=== PATIENT | male | born 1970 | race Caucasian/White ===

== ENCOUNTER 2024-11-13 18:00 | Emergency (ER) | payer BC, SELFPAY ==
--- OUTSIDE RECORDS SUMMARY | 2021-01-28 20:00 | XMS_ITS | Continuity of Care Document ---
Author Organization [facility] Address [address] [place] [id number] Phone Care Team Providers Care Fisheries Enforcement Officer Name Role Phone João DO, [place] Unavailable Unavailable Procedures Procedure Date Initial hospital care, [facility] Advance Directives Directive Yes / No Effective Date File Name No Information Encounters Encounter Description Practice Location Reason(s) For Visit Diagnoses Date Provider Providers Copied on Encounter Initial hospital care, [facility], [address] [place] [address], [id number], tel:[phone] [facility] No Information João Somerset. [address] [place] [address], [id number], [place]. tel:[phone] Referring Provider: Nico Love [address] [place] [address], [id number] . tel:[phone] Family History Family Member Type Diagnosis Age At Onset No Information Payers Payer name Insurance type Covered republican ID Romie gomez(constanza Hinoj[employer] Med Claims CI [id number] Social History Type Description Quantity Date Captured Comments Sex Male Smoking Status No Information Chief Complaint And Reason For Visit No Information Reason For Referral Reason For Referral No Information History Of Present Illness Encounter Date Complaint History Of Prese nt Illness No Information Functional Status Date Functional Assessmen t No Information Instructions Date Instruction Additional Infor mation No Information Assessments Type Assessment Date No Information Patient Care Teams Name Effective Dates (start - stop) Status Members No Information
[2024-11-13 18:38] VITALS: BP 165/76; PULSE 89; RESP 18; TEMP 37.4; O2SAT 96; BMI 38.7
--- NOTE | 2024-11-13 18:41 | XR_ITS ---
PROCEDURE INFORMATION: Exam: XR Chest Exam date and time: 11/13/2024 7:06 PM Age: 54 years old Clinical indication: Pain; Other: Cp TECHNIQUE: Imaging protocol: Radiologic exam of the chest. Views: 1 view. COMPARISON: No relevant prior studies available. FINDINGS: Lungs: Unremarkable. No consolidation. Pleural spaces: Unremarkable. No pleural effusion. No pneumothorax. Heart/Mediastinum: Unremarkable. No cardiomegaly. Bones/joints: Unremarkable. IMPRESSION: No acute findings.
--- NOTE | 2024-11-13 18:45 | ED_ITS ---
<Statement entered by Tracee Young MD - 11/13/24 22:46> I was consulted by the JANUSZ, and we discussed the complexity of the problems being addressed. I approved the treatment and management plan for this patient's care in the emergency department, thus performing a substantive portion of the medical decision making. Tracee Young MD, ETHAN, FACEP Discharge Plan Disposition Patient Disposition: Home, Self-Care Prescriptions Prescriptions: New cephalexin 500 mg capsule 500 mg PO BID 10 Days Qty: 20 0RF sulfamethoxazole-trimethoprim [Bactrim DS] 800-160 mg tablet 1 tab PO BID 10 Days Qty: 20 0RF ketorolac 10 mg tablet 10 mg PO Q8H PRN (Reason: pain) 5 Days Qty: 20 0RF sulfamethoxazole-trimethoprim [Bactrim DS] 800-160 mg tablet 1 tab PO BID 10 Days Qty: 20 0RF cephalexin 500 mg capsule 500 mg PO BID 7 Days Qty: 14 0RF No Action metformin 500 mg tablet 1,000 mg PO BID Patient Comments: TAKE 2 TABLETS BY MOUTH TWICE DAILY carvedilol 25 mg tablet 25 mg PO BID Patient Comments: TAKE 1 TABLET BY MOUTH TWICE DAILY sildenafil 50 mg tablet 50 mg PO DAILY PRN (Reason: Sexual Activity) Patient Comments: TAKE 1 TABLET BY MOUTH ONCE DAILY glipizide 10 mg tablet extended release 24hr 10 mg PO BID Patient Comments: TAKE 1 TABLET BY MOUTH TWICE DAILY meloxicam 7.5 mg tablet 7.5 mg PO DAILY Patient Comments: TAKE 1 TABLET BY MOUTH ONCE DAILY losartan-hydrochlorothiazide 100-25 mg tablet 1 tab PO DAILY Patient Comments: TAKE 1 TABLET BY MOUTH ONCE DAILY IN THE MORNING tamsulosin 0.4 mg capsule 0.4 mg PO DAILY Patient Comments: TAKE 1 CAPSULE BY MOUTH ONCE DAILY amlodipine 10 mg tablet 10 mg PO DAILY Patient Comments: TAKE 1 TABLET BY MOUTH ONCE DAILY aspirin 81 mg Tablet 81 mg PO DAILY Referrals Follow up/Referrals: Logan Loomis APRN [Primary Care Provider, Medical] - See instructions Activity Restrictions/Add. Instructions Additional Instructions/Restrictions: Please follow-up with line camera operator as scheduled. Take medicine as directed. Clinical Impressions Clinical Impression: Cellulitis, Chest pain Instructions Patient Instructions: Cellulitis, DI for Chest Pain Print Language Print Language: Cymro Discharge ED Provider: Tracee Young General Adult HPI <Stephanie Saldana (ED), INSURANCE CASE MANAGER - Last Filed: 11/13/24 22:31> General Chief complaint: Skin/Abscess/Foreign Body Stated complaint: sore on back painful Time Seen by Provider: 11/13/24 18:32 Mode of Arrival: Ambulatory Source of Information: Patient and Significant Other Description of Symptoms (Recalled from ER Triage Doc. by RN): Patient presents to ED for sores on his back for about a month. States he has more swelling and pain around them now. Also c/o chest pain. History of Present Illness HPI narrative: 54-year-old male presents to the ED today for complaint of abscess in the center of his back that is indurated around the area, appears to be an abscess and is painful. It has been there more than a month. He states that it hurts all the time. Patient also has an area to the right of that that is also indurated and swollen that he is concerned about. Denies fevers or chills. He does have nausea but also complaint of chest pain that started at noon today. He saw his line camera operator on Wednesday for ABIs and is going back next Wednesday for results. He says he smokes so he always has shortness of breath. He says he had nausea that started today as well. No other symptoms. Related Data Home Medications ?Medication ?Instructions ?Recorded ?Confirmed amlodipine 10 mg tablet 10 mg PO DAILY 11/13/2408/04 aspirin 81 mg tablet 81 mg PO DAILY 11/13/2408/04 carvedilol 25 mg tablet 25 mg PO BID 11/13/24 glipizide 10 mg tablet, extended 10 mg PO BID 11/13/24 11/13/24 release 24 hr losartan 100 1 tab PO DAILY 11/13/2408/04 mg-hydrochlorothiazide 25 mg tablet meloxicam 7.5 mg tablet 7.5 mg PO DAILY 11/13/2408/04 metformin 500 mg tablet 1,000 mg PO BID 11/13/2408/04 sildenafil 50 mg tablet 50 mg PO DAILY PRN Sexual Ac tivity 11/13/24 11/13/24 tamsulosin 0.4 mg capsule 0.4 mg PO DAILY 11/13/2408/04 Previous Rx's ?Medication ?Instructions ?Recorded cephalexin 500 mg capsule 500 mg PO BID 10 days #20 ca ps 11/13/24 cephalexin 500 mg capsule 500 mg PO BID 7 days #14 cap s 11/13/24 ketorolac 10 mg tablet 10 mg PO Q8H PRN pain 5 days #20 11/13/24 tabs sulfamethoxazole 800 1 tab PO BID 10 days #20 tab s 11/13/24 mg-trimethoprim 160 mg tablet (Bactrim DS) sulfamethoxazole 800 1 tab PO BID 10 days #20 tab s 11/13/24 mg-trimethoprim 160 mg tablet (Bactrim DS) Allergies Allergy/AdvReac Type Severity Reaction Status Date / Time No Known Allergies Allergy Verified 11/13/24 18:55 PFSH <Stephanie Saldana (ED), INSURANCE CASE MANAGER - Last Filed: 11/13/24 22:31> PFS Disclaimer: The information contained in this section may have been updated after the patient was seen, as this information can be updated by other users. Social History Smoking Status: Current every day smoker alcohol intake: former current occupational status: other Travel in the last 8 weeks?: None <Stephanie Saldana (ED), INSURANCE CASE MANAGER - Last Filed: 11/13/24 22:31> ROS Obtained: Yes Systems reviewed as appropriate & no additional complaints except as documented Constitutional Constitutional: Reports as per HPI Physical Exam <Stephanie Saldana (ED), INSURANCE CASE MANAGER - Last Filed: 11/13/24 22:31> General General appearance: alert Head Head exam: normocephalic Eye Eye exam: Present PERRL ENT ENT exam: Present mucous membranes moist Neck Neck exam: Present trachea midline Chest Chest inspection: Present normal inspection and symmetric chest wall rise Respiratory Respiratory exam: Present normal lung sounds bilaterally Cardiovascular Cardiovascular exam: Present regular rate, normal rhythm, normal heart sounds, +S1 and +S2 Abdominal Exam Abdominal exam: Present soft and normal bowel sounds Extremities Exam Extremities exam: Present full ROM and normal capillary refill Back Exam Back exam: Present full ROM Neurological Exam Neurological exam: Present alert and oriented X3 Psychiatric Psychiatric exam: Present normal mood Skin Skin exam: Present warm and erythema (Area in center of his back that appears to be an abscess with an area of induration around it approximately an inch in diameter. Also to the right of that an area of swelling that is mildly erythematous and indurated. No draining) Medical Decision Making <Stephanie Saldana (ED), INSURANCE CASE MANAGER - Last Filed: 11/13/24 22:31> Medical Records Screening: Per USPSTF and CDC recommendations, given the prevalence of disease in our region, it is our hospital?s policy to screen for HIV and viral Hepatitis for all patients aged 18 and over and those with ongoing risk factors. Cecil Inquiry Pt receiving controlled substance: No Vital Signs: 11/13/24 18:38 11/13/24 18:38 11/13/24 20:16 Temperature 99.4 F 99.4 F Temperature Source Oral Oral Pulse Rate 89 82 Pulse Rate [Left] 89 Respiratory Rate 18 18 16 Blood Pressure 165/76 H 129/62 Blood Pressure [Left Arm] 165/76 H Blood Pressure Mean [Left Arm] 105 02 Sat by Pulse Oximetry 96 96 95 Oxygen Delivery Method Room Air Room Air Room Air 11/13/24 21:09 Temperature Temperature Source Pulse Rate 82 Pulse Rate [Left] Respiratory Rate 16 Blood Pressure 131/76 Blood Pressure [Left Arm] Blood Pressure Mean [Left Arm] 02 Sat by Pulse Oximetry 96 Oxygen Delivery Method Lab Data Lab Results 11/13/24 19:20: WBC 16.5 H, RBC 4.54 L, Hgb 14.4, Hct 40.2 L, MCV 88.5, MCH 31.7 H, MCHC 35.8 H, RDW 12.9, Plt Count 261, MPV 10.4, Neut % (Auto) 67.7, Lymph % (Auto) 24.9, [place] % (Auto) 5.5, Eos % (Auto) 1.3, Baso % (Auto) 0.4, Neut # (Auto) 11.2 H, Lymph # (Auto) 4.1, [place] # (Auto) 0.9, Eos # (Auto) 0.2, Baso # (Auto) 0.1, Sodium 137, Potassium 3.5, Chloride 103, Carbon Dioxide 28, Anion Gap 9.5, BUN 12, Creatinine 0.60 L, Estimated Creat Clear 241, Estimated GFR 140, Est GFR ( Amer) 169, Glucose 179 H, Calcium 10.2, Magnesium 1.3 L, Total Bilirubin 0.6, AST 27, ALT 31, Alkaline Phosphatase 77, Troponin I < 0.01, Total Protein 7.6, Albumin 4.5, Globulin 3.1, Albumin/Globulin Ratio 1.5, Lipase 50 11/13/24 21:35: Troponin I < 0.01 11/13/24 19:20 11/13/24 19:20 Orders (Tests/Meds): ED MEDICATIONS Discontinued Medications Generic Name Dose Route Start Last Admin Trade Name Serg PRN Reason Stop Dose Admin Aspirin 325 mg 11/13/24 18:43 11/13/24 19:27 Aspirin 325mg Tablet PO 11/13/24 18:44 Not Given ONCE ONE Aspirin 243 mg 11/13/24 19:31 11/13/24 19:38 Aspirin 81mg Chewable Tablet PO 11/13/24 19:32 243 mg ONCE ONE Administration Cephalexin HCl 500 mg 11/13/24 20:59 11/13/24 21:06 Cephalexin 500mg Capsule PO 11/13/24 21:00 500 mg ONCE ONE Administration Magnesium Sulfate 2 gm in 50 mls @ 50 mls/hr 11/13/24 19:47 11/13/24 20:14 Magnesium Sulfate 2gm/50ml Premix IV 11/13/24 20:46 50 mls/hr ONCE ONE Administration Ketorolac Tromethamine 30 mg 11/13/24 21:00 11/13/24 21:06 Ketorolac 30mg/Ml Vial IV 11/13/24 21:01 30 mg ONCE ONE Administration Trimethoprim/Sulfamethoxazole 1 each 11/13/24 20:59 11/13/24 21:06 Sulfa/Trimethoprim 1 Tablet PO 11/13/24 21:00 1 each ONCE ONE Administration ORDERS Category Date Time Status Chest XR -- portable [XR chest portable] Stat Exams 11/13/24 18:41 Completed POCUS Point of Care (ER Only) Stat Exams 11/13/24 18:44 Completed CBC [Complete Blood Count Auto Diff] Stat Lab 11/13/24 19:20 Completed Comprehensive Metabolic Panel Stat Lab 11/13/24 19:20 Completed Lipase Stat Lab 11/13/24 19:20 Completed Magnesium Stat Lab 11/13/24 19:20 Completed Trop I [Troponin I] Stat Lab 11/13/24 19:20 Completed Troponin I Q3H Lab 11/13/24 21:35 Completed Troponin I Q3H Lab 11/14/24 00:45 Ordered HEART Score History (anamnesis): Slightly suspicious ECG: Normal Age: 45-65 years Risk factors: 3 or more risk factors Troponin: </= normal limit HEART Score: 3 Medical Decision Narrative: patient is a 54-year-old male presenting to the emergency department for evaluation of chest pain and abscess x 2. Patient is hemodynamically stable and nontoxic-appearing upon arrival, afebrile. Differential diagnosis includes ACS, abscess, hypertension, among others. Workup will be conducted with hematologic labs, specific imaging. Initial inventions include crystalloid bolus, analgesics. Initial workup reviewed by pa hematologic labs are remarkable for elevated white count at 16.5. Mag was low and was replaced here. Patient has cellulitic areas on his back x 2. Dr. Young ultrasound of these areas and there is very small area of fluid. Will treat with antibiotics Keflex and Bactrim which the first dose has been given here. X-ray showed nothing acute. The ultrasound read by Dr. Young showed small amount of fluid in the areas of concern on his back. Will treat for cellulitis. Please see formal radiology read for report. Upon repeat evaluation patient's pain is improved. Will send patient home with Keflex and Bactrim. 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 Patient will be stable for discharge home once his second troponin has resulted. As long as it is negative. <Tracee Young MD - Last Filed: 11/13/24 21:00> Vital Signs: 11/13/24 18:38 11/13/24 18:38 11/13/24 20:16 Temperature 99.4 F 99.4 F Temperature Source Oral Oral Pulse Rate 89 82 Pulse Rate [Left] 89 Respiratory Rate 18 18 16 Blood Pressure 165/76 H 129/62 Blood Pressure [Left Arm] 165/76 H Blood Pressure Mean [Left Arm] 105 02 Sat by Pulse Oximetry 96 96 95 Oxygen Delivery Method Room Air Room Air Room Air 11/13/24 21:09 Temperature Temperature Source Pulse Rate 82 Pulse Rate [Left] Respiratory Rate 16 Blood Pressure 131/76 Blood Pressure [Left Arm] Blood Pressure Mean [Left Arm] 02 Sat by Pulse Oximetry 96 Oxygen Delivery Method Lab Data Lab Results 11/13/24 19:20: WBC 16.5 H, RBC 4.54 L, Hgb 14.4, Hct 40.2 L, MCV 88.5, MCH 31.7 H, MCHC 35.8 H, RDW 12.9, Plt Count 261, MPV 10.4, Neut % (Auto) 67.7, Lymph % (Auto) 24.9, [place] % (Auto) 5.5, Eos % (Auto) 1.3, Baso % (Auto) 0.4, Neut # (Auto) 11.2 H, Lymph # (Auto) 4.1, [place] # (Auto) 0.9, Eos # (Auto) 0.2, Baso # (Auto) 0.1, Sodium 137, Potassium 3.5, Chloride 103, Carbon Dioxide 28, Anion Gap 9.5, BUN 12, Creatinine 0.60 L, Estimated Creat Clear 241, Estimated GFR 140, Est GFR ( Amer) 169, Glucose 179 H, Calcium 10.2, Magnesium 1.3 L, Total Bilirubin 0.6, AST 27, ALT 31, Alkaline Phosphatase 77, Troponin I < 0.01, Total Protein 7.6, Albumin 4.5, Globulin 3.1, Albumin/Globulin Ratio 1.5, Lipase 50 11/13/24 21:35: Troponin I < 0.01 Orders (Tests/Meds): ED MEDICATIONS Discontinued Medications Generic Name Dose Route Start Last Admin Trade Name Freq PRN Reason Stop Dose Admin Aspirin 325 mg 11/13/24 18:43 11/13/24 19:27 Aspirin 325mg Tablet PO 11/13/24 18:44 Not Given ONCE ONE Aspirin 243 mg 11/13/24 19:31 11/13/24 19:38 Aspirin 81mg Chewable Tablet PO 11/13/24 19:32 243 mg ONCE ONE Administration Cephalexin HCl 500 mg 11/13/24 20:59 11/13/24 21:06 Cephalexin 500mg Capsule PO 11/13/24 21:00 500 mg ONCE ONE Administration Magnesium Sulfate 2 gm in 50 mls @ 50 mls/hr 11/13/24 19:47 11/13/24 20:14 Magnesium Sulfate 2gm/50ml Premix IV 11/13/24 20:46 50 mls/hr ONCE ONE Administration Ketorolac Tromethamine 30 mg 11/13/24 21:00 11/13/24 21:06 Ketorolac 30mg/Ml Vial IV 11/13/24 21:01 30 mg ONCE ONE Administration Trimethoprim/Sulfamethoxazole 1 each 11/13/24 20:59 11/13/24 21:06 Sulfa/Trimethoprim 1 Tablet PO 11/13/24 21:00 1 each ONCE ONE Administration ORDERS Category Date Time Status Chest XR -- portable [XR chest portable] Stat Exams 11/13/24 18:41 Completed POCUS Point of Care (ER Only) Stat Exams 11/13/24 18:44 Completed CBC [Complete Blood Count Auto Diff] Stat Lab 11/13/24 19:20 Completed Comprehensive Metabolic Panel Stat Lab 11/13/24 19:20 Completed Lipase Stat Lab 11/13/24 19:20 Completed Magnesium Stat Lab 11/13/24 19:20 Completed Trop I [Troponin I] Stat Lab 11/13/24 19:20 Completed Troponin I Q3H Lab 11/13/24 21:35 Completed Troponin I Q3H Lab 11/14/24 00:45 Ordered HEART Score HEART Score: 3 Procedures <Tracee Young MD - Last Filed: 11/13/24 21:00> Miscellaneous Procedure Procedure Performed: Limited soft tissue ultrasound Indication: Soft tissue swelling and pain Identified structures: Location: Back Findings: No localized drainable fluid collection no significant or extensive cellular there is a small area of hyperdense material just deep to the main area of discomfort which could inferior be very thick purulent material or some calcified lesion but nonspecific. Impression: No localized drainable fluid collection Images were saved to permanent archive The study was technically adequate Soft Tissue CPT Codes: CPT Neck: 54051-33 CPT Upper extremity: 55880-04 CPT Axilla: 02898-22 CPT Chest wall: 70335-92 CPT Breast: 72712-29-PP/LT (complete), 20949-44-OT/LT (limited), CPT Upper Back: 91637-47 CPT Lower Back: 25713-92 CPT Abdominal Wall: 07783-63 CPT Pelvic Wall: 41101-76 CPT Lower Extremity: 69462-81 CPT Other Soft Tissue: 80879-18 This study was performed by me, and I personally interpreted all images/videos. Based on my clinical judgement, these images were adequate and did not necessitate further imaging. Critical Care <Stephanie Saldana (ED), INSURANCE CASE MANAGER - Last Filed: 11/13/24 22:31> Critical Care Time Critical Care Time: No
--- NOTE | 2024-11-13 18:56 | ECG_ITS ---
APPROVED REPORT Exam: Resting ECG HR:81 bpm ECG Measurements Heart Rate 81 AXES UT 185 P 36 QRSd 109 QRS -20 QT 352 T 17 QTc 389 Conclusion SINUS RHYTHM VOLTAGE CRITERIA FOR LVH [MEETS CRITERIA IN ONE OF: R(aVL), S(V1), R(V5), R(V5/V6)+S(V1)] NONSPECIFIC T-WAVE ABNORMALITY ABNORMAL ECG UNCONFIRMED REPORT Electronically signed by : Bhaskar Young, 11/13/2024 23:22:03
[2024-11-13 19:25] LABS: Hematocrit 40.2 % (42.0-52.0); Hemoglobin 14.4 g/dL (14.1-18.0); Immature Granulocytes % 0.2 %; Mean Corpuscular HGB Conc 35.8 g/dL (31.8-35.4); Mean Corpuscular Hemoglobin 31.7 pg (27.0-31.2); Mean Corpuscular Volume 88.5 fl (80-94); Nucleated Red Blood Cells % 0 %; Platelet Count 261 K/mm3 (142-424); Red Blood Count 4.54 M/mm3 (4.60-6.20); Red Cell Distribution Width-SD 41.9 fL; White Blood Count 16.5 K/mm3 (4.8-10.8)
[2024-11-13 19:36] LABS: Alanine Aminotransferase 31 U/L (12-78); Albumin Level 4.5 g/dl (3.5-5.0); Albumin/Globulin Ratio 1.5 (1.1-1.8); Alkaline Phosphatase 77 U/L (38-126); Anion Gap 9.5 mEq/L (5-15); Aspartate Amino Transferase 27 U/L (17-59); Bilirubin,Total 0.6 mg/dl (0.2-1.3); Blood Urea Nitrogen 12 mg/dl (9-20); Calcium 10.2 mg/dl (8.4-10.2); Carbon Dioxide 28 mmol/L (22.0-30.0); Chloride 103 mmol/L (98-107); Creatinine Clearance Estimated 241 mL/min (50-200); Creatinine,Serum 0.60 mg/dl (0.66-1.25); Estimated Glomerular Filt Rate 140 ml/min (>60); GFR (African American) 169 ML/MIN (>60); Globulin 3.1 g/dL (1.3-3.2); Glucose 179 mg/dl (74-100); Lipase 50 U/L (23-300); Magnesium 1.3 mg/dl (1.6-2.3); Potassium 3.5 mmoL/L (3.5-5.1); Sodium 137 mmol/L (136-145); Total Protein,Serum 7.6 g/dl (6.3-8.2)
[2024-11-13] MEDS: ASPIRIN 81MG CHEWABLE TABLET 243 MG PO (19:38)
[2024-11-13 19:55] LABS: Troponin I < 0.01 ng/ml (0.00-0.034)
[2024-11-13] MEDS: MAGNESIUM SULFATE IN WATER 2 GM/50 ML PIGGYBACK IV (20:14)
[2024-11-13 20:16] VITALS: BP 129/62; PULSE 82; RESP 16; O2SAT 95
[2024-11-13] MEDS: KETOROLAC 30MG/ML VIAL 30 MG IV (21:06)
[2024-11-13] MEDS: SULFA/TRIMETHOPRIM 1 TABLET 1 EACH PO (21:06)
[2024-11-13 21:09] VITALS: BP 131/76; PULSE 82; RESP 16; O2SAT 96
[2024-11-13 22:20] LABS: Troponin I < 0.01 ng/ml (0.00-0.034)
[2024-11-13 22:35] VITALS: BP 131/76; PULSE 82; RESP 16; TEMP 36.6; O2SAT 96
== END 2024-11-13 22:43 | disposition home or self-care (01) ==
PROVIDERS: Nurse Practitioner; Emergency Provider Student in an Organized Health Care Education/Training Program; PCP Nurse Practitioner Family
DX: R07.9 Chest pain, unspecified (principal); L03.90 Cellulitis, unspecified
CPT/HCPCS: 10061; 71045; 80053; 83690; 83735; 84484; 85025; 93005; 96365; 96375; 99285; J1885; J3475